=== PATIENT | male | born 1990 | race African-American/Black ===

== ENCOUNTER 2025-02-25 18:54 | Emergency (ER) | payer OTHER ==
[~2025-02-25] VITALS: Ht 185.4 cm; Wt 109.1 kg
[2025-02-25 18:57] VITALS: BP 151/80; PULSE 85; RESP 18; TEMP 98.1; O2SAT 100
[2025-02-25 19:39] LABS: PLATELET COUNT (AUTO) 226 K/uL (150-450); RED BLOOD CELL COUNT(AUTO) 4.76 MIL/uL (4.50-5.90); RED CELL DISTRIBUTION WIDTH 13.4 % (11.5-14.5); WHITE BLOOD COUNT (AUTO) 7.5 K/uL (4.5-11.0)
[2025-02-25 19:46] LABS: CALCIUM, TOTAL 9.2 mg/dL (8.8-10.5); CREATININE 1.17 mg/dL (0.60-1.30); GLOMERULAR FILTR. RATE CALC > 60 mL/min (>60); GLUCOSE,RANDOM 99 mg/dL (70-110); SODIUM SERUM 136 mmol/L (136-145); UREA NITROGEN, BLOOD 15 mg/dL (7-18)
[2025-02-25 19:52] LABS: TROPONIN I-HIGH SENSITIVITY 5 ng/L (<76)
== END 2025-02-25 22:30 | disposition left against medical advice (07) ==
LOC: EDSEX 18:54 → EMS 18:54
DX: R07.89 Other chest pain (principal); Z53.21 Procedure and treatment not carried out due to patient leaving prior to being seen by health care provider
CPT/HCPCS: 71045; 80048; 84484; 85025; 93005; 99281; 36415-L1; 36415-TC